=== PATIENT | male | born 1945 | race Hispanic/Latino ===

== ENCOUNTER 2018-11-28 13:48 | Emergency (ER) | payer OTHER ==
[2018-11-28] MEDS ORDERED: KETOROLAC TROMETHAMINE 30MG/ML ONE (14:47)
[2018-11-28] MEDS ORDERED: LIDOCAINE 5% TOPICAL PATCH TP ONE (14:47)
[2018-11-28] MEDS ORDERED: TETANUS/DIPHTHERIA TOXOID [ADULT] 0.5 ML VIAL IM ONE (14:47)
[2018-11-28] MEDS ORDERED: ACETAMINOPHEN EXTRA STRENGTH 500 MG TABLET ONE (14:47)
== END 2018-11-28 16:15 | disposition home or self-care (01) ==
LOC: EDH 13:48
DX: S91.112A Laceration without foreign body of left great toe without damage to nail, initial encounter (principal); S39.012A Strain of muscle, fascia and tendon of lower back, initial encounter; E11.9 Type 2 diabetes mellitus without complications; Z90.49 Acquired absence of other specified parts of digestive tract; Z87.891 Personal history of nicotine dependence; W01.0XXA Fall on same level from slipping, tripping and stumbling without subsequent striking against object, initial encounter; Y93.01 Activity, walking, marching and hiking; Y92.89 Other specified places as the place of occurrence of the external cause; Y99.8 Other external cause status
CPT/HCPCS: 73630; 90714; 99285; J1885

== ENCOUNTER 2019-04-28 08:30 | Day surgery (SDC) | payer OTHER ==
[2019-04-26 14:35] LABS: BASOPHILS % (AUTO) 1.1 % (0.0-5.0); EOSINOPHILS % (AUTO) 2.7 % (0.0-8.0); HEMATOCRIT 36.7 % (42-54); LYMPHOCYTES % (AUTO) 35.9 % (21.0-51.0); MEAN CORPUSCULAR HEMOGLOBIN 30.3 pg (27.0-33.0); MEAN CORPUSCULAR HGB CONC 34.9 g/dL (32.0-36.0); MEAN CORPUSCULAR VOLUME 86.9 fL (79-99); NEUTROPHILS % (AUTO) 50.3 % (40.0-77.0); PLATELET COUNT (AUTO) 174 K/uL (130-400); RED BLOOD CELL COUNT(AUTO) 4.23 MIL/uL (4.50-6.20)
[2019-04-26 14:44] LABS: POTASSIUM 4.5 mmol/L (3.5-5.1)
[2019-04-26 15:04] VITALS: BP 156/73
[2019-04-28] VITALS (19 sets, daily range): BP systolic 98–145; BP diastolic 55–82
[~2019-04-28] VITALS: Ht 175.3 cm; Wt 117.0 kg
[2019-04-28] MEDS: CEFTRIAXONE SODIUM 1 GM IVP ONE ×2 (08:00→09:40)
[~2019-04-28 08:30] MED LIST: CEPH500T PO; GLIM4TAB5 PO; LOSA25TA41 PO; ROSU10TA28 PO; SITA50TA PO; TAMS-1 PO
[2019-04-28] MEDS ORDERED: CEFTRIAXONE SODIUM 1 GM ONE (09:33)
[2019-04-28] MEDS ORDERED: SODIUM CHLORIDE 0.9% 1000ML 1,000 ML IV ONE (09:34)
[2019-04-28] MEDS ORDERED: DEXAMETHASONE SOD PHOSPHATE 10MG/ML 1ML VIAL ONE (09:36)
[2019-04-28] MEDS ORDERED: LIDOCAINE PF 2% 5ML ABBOJECT ONE (09:36)
[2019-04-28] MEDS ORDERED: PROPOFOL 10 MG/ML 20ML VIAL IV ONE (09:37)
[2019-04-28] MEDS ORDERED: FENTANYL CITRATE PF 50 MCG/1 ML 2ML VIAL ONE (09:37)
[2019-04-28] MEDS ORDERED: MIDAZOLAM HCL 1 MG/ML 2ML VIAL ONE (09:37)
[2019-04-28] MEDS ORDERED: ONDANSETRON HCL 4 MG/2 ML VIAL ONE (09:37)
[2019-04-28] MEDS ORDERED: EPHEDRINE SULFATE 50 MG/ML AMPULE ONE (10:01)
[2019-04-28] MEDS ORDERED: OPIUM/BELLADONNA ALKALOIDS 1 EACH SUPP.RECT RC ONE (10:51)
--- NOTE | 2019-04-28 11:43 | NUR ---
POST-PROCEDURE RECEIVED FROM RR S/P GREEN LIGHT LASER VIA STRETCHER. AWAKE C/O BILATERAL CHEST "SORENESS". CONNECTED TO CONTINUOUS CARDIOPULMONARY MONITORING. SIDE RAILS UP X2, BED IN LOWEST POSITION, AND CALL LIGHT W/IN REACH. Addendum: 04/28/19 at 1640 by VIV SOLIZ RN RN 16F F/C TO BSD DRAINING PINK URINE.
[2019-04-28] MEDS ORDERED: PHENAZOPYRIDINE HCL 200 MG TABLET ONE (11:54)
--- NOTE | 2019-04-28 12:06 | NUR ---
MD NOTIFICATION DR. NEWBY NOTIFIED THAT PT C/O OF CHEST "SORENESS". DR. NEWBY IN TO SEE PATIENT. ORDER RECEIVED FOR EKG. PT DENIES CHEST PRESSURE, PAIN TO THE ARM, OR DIFFICULTY BREATHING.
--- NOTE | 2019-04-28 12:15 | NUR ---
ORDER EKG COMPLETED ORDERED.
--- NOTE | 2019-04-28 12:19 | NUR ---
EKG RESULTS DR. NEWBY CALLED WITH EKG RESULTS. PER DR. NEWBY PT CAN BE DISCHARGED WITH INSTRUCTIONS TO RETURN TO ER FOR CHEST PAIN, PAIN TO THE ARM, OR DIFFICULTY BREATHING.
--- NOTE | 2019-04-28 12:30 | NUR ---
EDUCATION PT AND EDUCATED/DEMONSTRATED HOW TO SWITCH FROM RAMIREZ BAG TO LEG BAG. LEG STRAP APPLIED TO F/C. EDUCATED ON IMPORTANCE OF GOOD HANDWASHING WHEN SWITCHING BAG AND KEEPING RAMIREZ BELOW BLADDER. BOTH VERBALIZED UNDERSTANDING.
--- NOTE | 2019-04-28 12:30 | NUR ---
ACTIVITY AMBULATED TO RR WITH STANDBY ASSIST OF 1. GAIT STEADY.
--- NOTE | 2019-04-28 12:43 | NUR ---
DISCHARGE INSTRUCTIONS DAY PT DISCHARGE INSTRUCTION SHEET, MED REC, AND PT SUMMARY REVIEWED WITH PT AND . BOTH VERBALIZED UNDERSTANDING. OPPORTUNITY GIVEN TO ASK QUESTIONS. QUESTIONS ADDRESSED.
--- NOTE | 2019-04-28 13:16 | NUR ---
DISCHARGE DISCHARGED VIA W/C. AWAKE IN NO ACUTE DISTRESS.
== END 2019-04-28 13:16 | disposition home or self-care (01) ==
LOC: DAH 08:30
PROVIDERS: ATTEND Urology
DX: N40.1 Benign prostatic hyperplasia with lower urinary tract symptoms (principal); R35.1 Nocturia; I10 Essential (primary) hypertension; E11.9 Type 2 diabetes mellitus without complications; E78.00 Pure hypercholesterolemia, unspecified; F17.210 Nicotine dependence, cigarettes, uncomplicated; Z79.899 Other long term (current) drug therapy; Z79.84 Long term (current) use of oral hypoglycemic drugs; Z98.890 Other specified postprocedural states
CPT/HCPCS: 36415; 52648; 80048; 82948 ×2; 85025; 88307; 93005 ×2; A4215; A4221; A4222; A4223; A4340; A4354; A4358; A4510; A4600; A4663; J0696; J1100; J2001; J2250; J2405; J2704; J3010; J3490; J7030 ×2

== ENCOUNTER → 2019-08-18 | Outpatient (CLI) | payer OTHER ==
[~2019-08-18] MED LIST changes: +GLIM4TAB36 PO; -GLIM4TAB5 PO
== END | disposition home or self-care (01) ==
LOC: OIH 13:43
PROVIDERS: ATTEND Internal Medicine Cardiovascular Disease
DX: Z13.6 Encounter for screening for cardiovascular disorders (principal)
CPT/HCPCS: 75571

== ENCOUNTER → 2019-09-07 | Outpatient (CLI) | payer OTHER | END | disposition home or self-care (01) | LOC: SHCH 08:20 | PROVIDERS: ATTEND Internal Medicine Cardiovascular Disease | DX: I11.9 Hypertensive heart disease without heart failure (principal); I35.8 Other nonrheumatic aortic valve disorders | CPT/HCPCS: 93306; 93356 ==

== ENCOUNTER → 2019-09-12 | Outpatient (CLI) | payer OTHER | END | disposition home or self-care (01) | LOC: SHCH 08:51 | PROVIDERS: ATTEND Internal Medicine Cardiovascular Disease | DX: I73.9 Peripheral vascular disease, unspecified (principal); I87.2 Venous insufficiency (chronic) (peripheral) | CPT/HCPCS: 93925; 93970 ==

== ENCOUNTER 2021-05-23 05:29 | Inpatient (IN) | payer OTHER ==
[2021-05-23] VITALS (18 sets, daily range): BP systolic 109–165; BP diastolic 53–103
[~2021-05-23] VITALS: Ht 175.3 cm; Wt 135.9 kg
[~2021-05-23 05:29] MED LIST changes: +HYDR12.54 PO; +MIRA50TA PO; +OXYB-66 PO; +SIMV40TA59 PO; +SITA100T12 PO; -SITA50TA PO
[2021-05-23] MEDS ORDERED: ASPIRIN 81MG CHEW TAB ONE (05:34)
[2021-05-23] MEDS ORDERED: NITROGLYCERIN 0.4 MG SL TAB SL ONE (05:37)
[2021-05-23 05:48] LABS: BASOPHILS % (AUTO) 0.6 % (0.0-5.0); EOSINOPHILS % (AUTO) 3.6 % (0.0-8.0); HEMATOCRIT 37.5 % (42-54); LYMPHOCYTES % (AUTO) 20.6 % (21.0-51.0); MEAN CORPUSCULAR HEMOGLOBIN 28.4 pg (27.0-33.0); MEAN CORPUSCULAR HGB CONC 33.1 g/dL (32.0-36.0); MONOCYTES % (AUTO) 6.5 % (3.0-13.0); NEUTROPHILS % (AUTO) 68.1 % (40.0-77.0); PLATELET COUNT (AUTO) 185 K/uL (130-400); RED BLOOD CELL COUNT(AUTO) 4.36 MIL/uL (4.50-6.20); RED CELL DISTRIBUTION WIDTH 13.8 % (11.0-15.5); WHITE BLOOD COUNT (AUTO) 8.9 K/uL (4.8-10.8)
[2021-05-23 05:59] LABS: CREATININE 1.1 mg/dL (0.5-1.5)
[2021-05-23] MEDS ORDERED: HEPARIN 25,000 UNITS/250ML D5W 250 ML IV PRN (06:00)
[2021-05-23] MEDS ORDERED: MORPHINE 2 MG SYG IVP ONE ×2 (06:00)
[2021-05-23] MEDS ORDERED: HEPARIN 5,000 UNIT VIAL IV ONE (06:00)
[2021-05-23 06:01] LABS: INR 1.02 (0.85-1.15); PROTHROMBIN TIME 11.1 SEC (9.6-11.6)
[2021-05-23 06:02] LABS: PARTIAL THROMBOPLASTIN TIME 25.1 SEC (26.3-35.5)
[2021-05-23] MEDS ORDERED: HEPARIN 10,000 UNIT/10ML (1,000 UNIT/ML) VIAL ONE (06:06)
[2021-05-23] MEDS ORDERED: BIVALIRUDIN 250 MG/VIAL IV ONE ×2 (06:06→06:59)
[2021-05-23] MEDS ORDERED: IOHEXOL 350 MG/ML 100ML INFUS..BTL IV ONE (06:06)
[2021-05-23] MEDS ORDERED: NITROGLYCERIN 2 MG VIAL IV ONE (06:06)
[2021-05-23] MEDS ORDERED: LIDOCAINE HCL 400MG/20ML VIAL ONE (06:07)
[2021-05-23 06:08] LABS: ALBUMIN 3.6 g/dL (3.5-5.0); BILIRUBIN,TOTAL 0.1 mg/dL (0.2-1.0)
[2021-05-23] MEDS ORDERED: HEPARIN 5,000 UNIT VIAL ONE (06:08)
[2021-05-23] MEDS ORDERED: MORPHINE 2 MG SYG ONE (06:08)
[2021-05-23] MEDS ORDERED: MIDAZOLAM HCL 1 MG/ML 2ML VIAL ONE (06:32)
[2021-05-23] MEDS ORDERED: FENTANYL CITRATE PF 50 MCG/1 ML 2ML VIAL ONE (06:32)
[2021-05-23] MEDS ORDERED: VERAPAMIL HCL 2.5 MG/ML VIAL ONE (07:03)
[2021-05-23] MEDS ORDERED: IOHEXOL-350 50ML VIAL IV ONE (07:10)
[2021-05-23] MEDS ORDERED: CLOPIDOGREL 300MG TAB ONE (07:28)
[2021-05-23] MEDS ORDERED: DEXTROSE 50%-WATER 50 ML DISP.SYRIN IV PRN (08:00)
[2021-05-23] MEDS ORDERED: GLUCAGON 1MG KIT 1 MG ML IM PRN (08:00)
[2021-05-23] MEDS ORDERED: 0.9%NACL 1000ML 1,000 ML IV SCH (08:00)
[2021-05-23] MEDS ORDERED: NITROGLYCERIN 0.4 MG SL TAB SL PRN (08:00)
[2021-05-23] MEDS: ASPIRIN 81MG CHEW TAB PO SCH (08:25)
[2021-05-23] MEDS: METOPROLOL TARTRATE 25 MG TAB PO SCH ×2 (08:26→20:59)
[2021-05-23] MEDS: LOSARTAN 50 MG TABLET PO SCH (08:26)
[2021-05-23] MEDS ORDERED: CLOPIDOGREL 75MG TAB PO SCH (09:00)
[2021-05-23 10:38] LABS: HEMOGLOBIN A1C 9.1 % (4.0-6.0)
[2021-05-23] MEDS: INSULIN HUMULIN R 100 UNIT/ML 3ML SQ SCH ×3 (11:30→19:51)
[2021-05-24] VITALS (14 sets, daily range): BP systolic 91–123; BP diastolic 41–75
[2021-05-24] MEDS: HEPARIN 5,000 UNIT VIAL SQ SCH ×4 (00:19→22:30)
[2021-05-24 03:48] LABS: APPEARANCE,URINE Clear (CLEAR); BILIRUBIN,URINE Negative (NEGATIVE); COLOR,URINE Yellow (YELLOW); GLUCOSE, URINE (UA) 250 mg/dL (NEGATIVE); KETONES,URINE Trace mg/dL (NEGATIVE); LEUKOCYTE ESTERASE ,URINE Negative (NEGATIVE); NITRATE,URINE Negative (NEGATIVE); OCCULT BLOOD,URINE Negative (NEGATIVE); PROTEIN,URINE Trace mg/dL (NEGATIVE)
[2021-05-24 04:07] LABS: BACTERIA,URINE None Seen /HPF (None Seen); RBC,URINE 0-1 /HPF (0-1); WBC,URINE 0-1 /HPF (0-1)
[2021-05-24 04:08] LABS: MUCUS,URINE Few LPF (None Seen); SQUAMOUS EPITHELIAL CELL,UR Rare /HPF (0-2)
[2021-05-24 04:36] LABS: HEMATOCRIT 35.4 % (42-54); MEAN CORPUSCULAR HEMOGLOBIN 28.3 pg (27.0-33.0); MEAN CORPUSCULAR HGB CONC 33.9 g/dL (32.0-36.0); MEAN CORPUSCULAR VOLUME 83.5 fL (79-99); RED BLOOD CELL COUNT(AUTO) 4.24 MIL/uL (4.50-6.20); RED CELL DISTRIBUTION WIDTH 13.9 % (11.0-15.5); WHITE BLOOD COUNT (AUTO) 9.3 K/uL (4.8-10.8)
[2021-05-24 04:55] LABS: ALBUMIN 3.5 g/dL (3.5-5.0); BILIRUBIN,TOTAL 0.5 mg/dL (0.2-1.0); POTASSIUM 3.6 mmol/L (3.5-5.1); TOTAL PROTEIN, SERUM 7.6 g/dL (6.0-8.3)
[2021-05-24] MEDS: INSULIN HUMULIN R 100 UNIT/ML 3ML SQ SCH ×5 (06:20→21:19)
[2021-05-24] MEDS: LOSARTAN 50 MG TABLET PO SCH (08:24)
[2021-05-24] MEDS: METOPROLOL TARTRATE 25 MG TAB PO SCH ×2 (08:31→20:25)
[2021-05-24] MEDS: ASPIRIN 81MG CHEW TAB PO SCH (08:31)
[2021-05-24] MEDS: TAMSULOSIN HCL 0.4 MG CAP.ER.24H PO SCH (08:31)
[2021-05-24] MEDS: OXYBUTYNIN 5 MG TAB.SR.24H PO SCH (08:40)
[2021-05-24] MEDS: IPRATROPIUM/ALBUTEROL SULFATE 3 ML SOLUTION IH SCH ×2 (12:00→18:00)
[2021-05-24] MEDS: SIMVASTATIN 20 MG TABLET PO SCH (20:25)
[2021-05-25 03:50] VITALS: BP 112/62
[2021-05-25] MEDS: IPRATROPIUM/ALBUTEROL SULFATE 3 ML SOLUTION IH SCH ×4 (06:00→18:00)
[2021-05-25 08:00] VITALS: BP 151/77
[2021-05-25] MEDS: TAMSULOSIN HCL 0.4 MG CAP.ER.24H PO SCH (08:29)
[2021-05-25] MEDS: METOPROLOL TARTRATE 25 MG TAB PO SCH ×2 (08:29→20:06)
[2021-05-25] MEDS: OXYBUTYNIN 5 MG TAB.SR.24H PO SCH (08:29)
[2021-05-25] MEDS: LOSARTAN 50 MG TABLET PO SCH (08:30)
[2021-05-25] MEDS: ASPIRIN 81MG CHEW TAB PO SCH (08:30)
[2021-05-25] MEDS: INSULIN HUMULIN R 100 UNIT/ML 3ML SQ SCH ×4 (08:34→20:07)
[2021-05-25] MEDS: FUROSEMIDE 20 MG TABLET PO SCH ×2 (08:45→17:35)
[2021-05-25] MEDS: HEPARIN 5,000 UNIT VIAL SQ SCH ×3 (08:45→23:05)
[2021-05-25 12:00] VITALS: BP 132/70
[2021-05-25] MEDS ORDERED: ACETAMINOPHEN 500 MG TABLET PO ONE (14:00)
[2021-05-25 16:00] VITALS: BP 130/65
[2021-05-25 19:00] VITALS: BP 138/90
[2021-05-25] MEDS: SIMVASTATIN 20 MG TABLET PO SCH (20:06)
[2021-05-25] MEDS: MEMANTINE HCL 5 MG TABLET PO SCH (20:06)
[2021-05-26] VITALS (7 sets, daily range): BP systolic 95–149; BP diastolic 57–69
[2021-05-26 05:05] LABS: CREATININE 1.1 mg/dL (0.5-1.5); POTASSIUM 3.2 mmol/L (3.5-5.1)
[2021-05-26] MEDS ORDERED: KCL 20 MEQ ERTAB PO ONE (05:34)
[2021-05-26] MEDS: HEPARIN 5,000 UNIT VIAL SQ SCH ×3 (05:38→20:30)
[2021-05-26] MEDS: INSULIN HUMULIN R 100 UNIT/ML 3ML SQ SCH ×4 (05:38→20:31)
[2021-05-26] MEDS: KCL 20 MEQ ERTAB PO PRN ×3 (05:51→17:00)
[2021-05-26] MEDS ORDERED: POTASSIUM CHLORIDE 20MEQ/100ML 100 ML IV PRN (06:00)
[2021-05-26] MEDS: IPRATROPIUM/ALBUTEROL SULFATE 3 ML SOLUTION IH SCH ×4 (06:00→18:56)
[2021-05-26] MEDS ORDERED: LIDOCAINE HCL-MPF 1% 2ML VIAL IV PRN (06:00)
[2021-05-26] MEDS ORDERED: POTASSIUM CHLORIDE 10% ELIXIR 20 MEQ/15 ML UDCUP PO PRN (06:00)
[2021-05-26 06:36] LABS: ABG BASE EXCESS 3.5 mmol/L (-2.0-3.0); ABG HCO3 27.4 mmol/L (21.0-28.0); ABG OXYGEN SATURATION 94.9 % (95.0-99.0); ABG PCO2 39 mmHg (35-48)
[2021-05-26] MEDS: FUROSEMIDE 20 MG TABLET PO SCH ×2 (09:17→16:58)
[2021-05-26] MEDS: METOPROLOL TARTRATE 25 MG TAB PO SCH ×2 (09:17→20:31)
[2021-05-26] MEDS: ASPIRIN 81MG CHEW TAB PO SCH (09:17)
[2021-05-26] MEDS: OXYBUTYNIN 5 MG TAB.SR.24H PO SCH (09:17)
[2021-05-26] MEDS: TAMSULOSIN HCL 0.4 MG CAP.ER.24H PO SCH (09:17)
[2021-05-26] MEDS: LOSARTAN 50 MG TABLET PO SCH (09:17)
[2021-05-26] MEDS: MEMANTINE HCL 5 MG TABLET PO SCH (20:31)
[2021-05-26] MEDS: SIMVASTATIN 20 MG TABLET PO SCH (20:31)
[2021-05-27] MEDS: IPRATROPIUM/ALBUTEROL SULFATE 3 ML SOLUTION IH SCH ×4 (00:33→18:36)
[2021-05-27 04:05] LABS: BASOPHILS % (AUTO) 0.6 % (0.0-5.0); EOSINOPHILS % (AUTO) 2.9 % (0.0-8.0); HEMATOCRIT 30.1 % (42-54); LYMPHOCYTES % (AUTO) 29.9 % (21.0-51.0); MEAN CORPUSCULAR HEMOGLOBIN 28.2 pg (27.0-33.0); MEAN CORPUSCULAR HGB CONC 32.9 g/dL (32.0-36.0); MEAN CORPUSCULAR VOLUME 85.8 fL (79-99); MONOCYTES % (AUTO) 10.8 % (3.0-13.0); NEUTROPHILS % (AUTO) 55.2 % (40.0-77.0); PLATELET COUNT (AUTO) 146 K/uL (130-400); RED BLOOD CELL COUNT(AUTO) 3.51 MIL/uL (4.50-6.20); RED CELL DISTRIBUTION WIDTH 13.9 % (11.0-15.5); WHITE BLOOD COUNT (AUTO) 7.8 K/uL (4.8-10.8)
[2021-05-27 04:14] VITALS: BP 108/65
[2021-05-27 04:15] LABS: BILIRUBIN,TOTAL 0.3 mg/dL (0.2-1.0); CREATININE 1.2 mg/dL (0.5-1.5); MAGNESIUM 1.8 mg/dL (1.80-2.40); POTASSIUM 3.8 mmol/L (3.5-5.1); TOTAL PROTEIN, SERUM 6.9 g/dL (6.0-8.3)
[2021-05-27] MEDS ORDERED: MAGNESIUM 2GM PREMIX 50ML 50 ML IV PRN (04:30)
[2021-05-27] MEDS: INSULIN HUMULIN R 100 UNIT/ML 3ML SQ SCH ×4 (04:50→22:07)
[2021-05-27] MEDS: HEPARIN 5,000 UNIT VIAL SQ SCH ×3 (05:44→22:07)
[2021-05-27 07:50] VITALS: BP 123/74
[2021-05-27] MEDS: OXYBUTYNIN 5 MG TAB.SR.24H PO SCH (09:21)
[2021-05-27] MEDS: TAMSULOSIN HCL 0.4 MG CAP.ER.24H PO SCH (09:21)
[2021-05-27] MEDS: FUROSEMIDE 20 MG TABLET PO SCH ×2 (09:21→16:31)
[2021-05-27] MEDS: METOPROLOL TARTRATE 25 MG TAB PO SCH ×2 (09:21→22:04)
[2021-05-27] MEDS: LOSARTAN 50 MG TABLET PO SCH (09:21)
[2021-05-27] MEDS: ASPIRIN 81MG CHEW TAB PO SCH (09:21)
[2021-05-27 10:42] VITALS: BP 129/67
[2021-05-27 15:50] VITALS: BP 129/59
[2021-05-27 19:00] VITALS: BP 134/62
[2021-05-27] MEDS: SIMVASTATIN 20 MG TABLET PO SCH (22:04)
[2021-05-27] MEDS: MEMANTINE HCL 5 MG TABLET PO SCH (22:04)
[2021-05-28] VITALS: BP 120/65
[2021-05-28] MEDS: IPRATROPIUM/ALBUTEROL SULFATE 3 ML SOLUTION IH SCH ×4 (00:30→18:36)
[2021-05-28 04:00] VITALS: BP 96/51
[2021-05-28] MEDS: INSULIN HUMULIN R 100 UNIT/ML 3ML SQ SCH ×4 (06:36→21:25)
[2021-05-28] MEDS: HEPARIN 5,000 UNIT VIAL SQ SCH ×3 (06:46→22:00)
[2021-05-28 07:47] VITALS: BP 108/66
[2021-05-28] MEDS: ASPIRIN 81MG CHEW TAB PO SCH (09:27)
[2021-05-28] MEDS: TAMSULOSIN HCL 0.4 MG CAP.ER.24H PO SCH (09:27)
[2021-05-28] MEDS: FUROSEMIDE 20 MG TABLET PO SCH ×2 (09:27→17:36)
[2021-05-28] MEDS: LOSARTAN 50 MG TABLET PO SCH (09:28)
[2021-05-28] MEDS: OXYBUTYNIN 5 MG TAB.SR.24H PO SCH (09:28)
[2021-05-28] MEDS: CLOPIDOGREL 75MG TAB PO SCH (09:28)
[2021-05-28] MEDS: METOPROLOL TARTRATE 25 MG TAB PO SCH ×2 (09:28→21:08)
[2021-05-28 10:59] VITALS: BP 124/67
[2021-05-28 15:42] VITALS: BP 118/62
[2021-05-28 19:00] VITALS: BP 104/54
[2021-05-28] MEDS: MEMANTINE HCL 5 MG TABLET PO SCH (21:08)
[2021-05-28] MEDS: SIMVASTATIN 20 MG TABLET PO SCH (21:08)
[2021-05-29] VITALS: BP 121/59
[2021-05-29] MEDS: IPRATROPIUM/ALBUTEROL SULFATE 3 ML SOLUTION IH SCH ×3 (00:39→11:27)
[2021-05-29 04:00] VITALS: BP 113/62
[2021-05-29] MEDS: HEPARIN 5,000 UNIT VIAL SQ SCH ×2 (05:35→14:24)
[2021-05-29] MEDS: INSULIN HUMULIN R 100 UNIT/ML 3ML SQ SCH ×3 (06:20→16:03)
[2021-05-29 07:50] VITALS: BP 96/51
[2021-05-29] MEDS: LOSARTAN 50 MG TABLET PO SCH (09:20)
[2021-05-29] MEDS: OXYBUTYNIN 5 MG TAB.SR.24H PO SCH (09:20)
[2021-05-29] MEDS: FUROSEMIDE 20 MG TABLET PO SCH ×2 (09:20→16:43)
[2021-05-29] MEDS: ASPIRIN 81MG CHEW TAB PO SCH (09:20)
[2021-05-29] MEDS: CLOPIDOGREL 75MG TAB PO SCH (09:20)
[2021-05-29] MEDS: METOPROLOL TARTRATE 25 MG TAB PO SCH (09:20)
[2021-05-29] MEDS: TAMSULOSIN HCL 0.4 MG CAP.ER.24H PO SCH (09:20)
[2021-05-29 11:13] VITALS: BP 106/65
[2021-05-29 15:37] VITALS: BP 119/64
[2021-05-29] MEDS ORDERED: METO25 PO (16:36)
[2021-05-29] MEDS ORDERED: POTA-10 PO (16:36)
[2021-05-29] MEDS ORDERED: MEMA5TAB PO (16:36)
[2021-05-29] MEDS ORDERED: ASPI-1005 PO (16:36)
[2021-05-29] MEDS ORDERED: CLOP75TA14 PO (16:36)
[2021-05-29] MEDS ORDERED: FURO20TA6 PO (16:36)
[2021-05-29] MEDS ORDERED: LOSA50TA2 PO (16:36)
== END 2021-05-29 18:00 | disposition home or self-care (01) | DRG 248 ==
LOC: EDH 05:29 → 2CH 05:30 → UNDOADMIN 05:30 → 2CH 07:51 → 4BH 05-24 21:13
PROVIDERS: ADMIT Internal Medicine Pulmonary Disease; ATTEND Internal Medicine Pulmonary Disease
PROC: 02703DZ Dilation of Coronary Artery, One Artery with Intraluminal Device, Percutaneous Approach (ICD-10-PCS; principal; 2021-05-23)
PROC: 4A023N7 Measurement of Cardiac Sampling and Pressure, Left Heart, Percutaneous Approach (ICD-10-PCS; 2021-05-23)
PROC: B2111ZZ Fluoroscopy of Multiple Coronary Arteries using Low Osmolar Contrast (ICD-10-PCS; 2021-05-23)
PROC: B2151ZZ Fluoroscopy of Left Heart using Low Osmolar Contrast (ICD-10-PCS; 2021-05-23)
DX: I21.19 ST elevation (STEMI) myocardial infarction involving other coronary artery of inferior wall (principal); I50.41 Acute combined systolic (congestive) and diastolic (congestive) heart failure; J98.11 Atelectasis; E46 Unspecified protein-calorie malnutrition; Z68.41 Body mass index [BMI] 40.0-44.9, adult; Z20.822 Contact with and (suspected) exposure to COVID-19; E78.5 Hyperlipidemia, unspecified; R29.6 Repeated falls; N40.0 Benign prostatic hyperplasia without lower urinary tract symptoms; E11.40 Type 2 diabetes mellitus with diabetic neuropathy, unspecified; F17.210 Nicotine dependence, cigarettes, uncomplicated; F03.90 Unspecified dementia, unspecified severity, without behavioral disturbance, psychotic disturbance, mood disturbance, and anxiety; F41.1 Generalized anxiety disorder; F32.A Depression, unspecified; I11.0 Hypertensive heart disease with heart failure; E78.00 Pure hypercholesterolemia, unspecified; I25.10 Atherosclerotic heart disease of native coronary artery without angina pectoris; Z90.49 Acquired absence of other specified parts of digestive tract; Z79.02 Long term (current) use of antithrombotics/antiplatelets; Z79.82 Long term (current) use of aspirin; Z79.84 Long term (current) use of oral hypoglycemic drugs; Z79.899 Other long term (current) drug therapy; Z86.73 Personal history of transient ischemic attack (TIA), and cerebral infarction without residual deficits
CPT/HCPCS: 36415; 36600; 71045; 80048; 80053; 80061; 81001; 82803; 82948; 83036; 83735; 83880; 84484; 85025; 85027; 85610; 85730; 87635; 92610; 92941; 93005; 93306; 93356; 93458; 93880; 93970; 94010; 94640; 94664; 97039; 99156; 99157; C1760; C1769; C1887; C1894; C9600; C9803; G0378; J0583; J1644; J1815; J2250; J3010; J3475; J3490; Q9967

== ENCOUNTER 2021-10-29 17:34 | Inpatient (IN) | payer OTHER ==
[~2021-10-29] VITALS: Ht 175.3 cm; Wt 99.4 kg
[~2021-10-29 17:34] MED LIST changes: +AEC81 PO; -CEPH500T PO; +CLOP75TA32 PO; +CYAN-35 PO; +FERR-72 PO; +FINA5TAB41 PO; +FURO20TA4 PO; -HYDR12.54 PO; -LOSA25TA41 PO; +LOSA50TA64 PO; +MEMA5TAB42 PO; +METO25TA6 PO; -MIRA50TA PO; -OXYB-66 PO; +PANT40TA54 PO; +POTA-10 PO; -ROSU10TA28 PO; +VITAMIN D3 PO
[2021-10-29 18:26] LABS: BASOPHILS % (AUTO) 1.1 % (0.0-5.0); EOSINOPHILS % (AUTO) 9.6 % (0.0-8.0); LYMPHOCYTES % (AUTO) 26.3 % (21.0-51.0); MEAN CORPUSCULAR HEMOGLOBIN 27.1 pg (27.0-33.0); MEAN CORPUSCULAR HGB CONC 31.8 g/dL (32.0-36.0); MEAN CORPUSCULAR VOLUME 85.4 fL (79-99); MONOCYTES % (AUTO) 7.1 % (3.0-13.0); NEUTROPHILS % (AUTO) 55.3 % (40.0-77.0); PLATELET COUNT (AUTO) 363 K/uL (130-400); RED BLOOD CELL COUNT(AUTO) 3.28 MIL/uL (4.50-6.20); RED CELL DISTRIBUTION WIDTH 15.5 % (11.0-15.5); WHITE BLOOD COUNT (AUTO) 8.4 K/uL (4.8-10.8)
[2021-10-29] MEDS ORDERED: FURO20TA4 PO (18:27)
[2021-10-29] MEDS ORDERED: SITA100T12 PO (18:27)
[2021-10-29] MEDS ORDERED: OXYB5TAB15 PO (18:27)
[2021-10-29] MEDS ORDERED: LACT10PA5 PO (18:27)
[2021-10-29] MEDS ORDERED: ATOR40TA71 PO (18:27)
[2021-10-29] MEDS ORDERED: LISI2.5T13 PO (18:27)
[2021-10-29 18:51] LABS: B-TYPE NATRIURETIC PEPTIDE 164 pg/mL (0-100)
[2021-10-29] MEDS ORDERED: ACETAMINOPHEN 650 MG SUPPOSITORY RC PRN (19:00)
[2021-10-29] MEDS ORDERED: ACETAMINOPHEN 325 MG TAB PO PRN (19:00)
[2021-10-29] MEDS ORDERED: MORPHINE 2 MG SYG IVP PRN (19:00)
[2021-10-29] MEDS ORDERED: ALBUTEROL 0.083% 2.5 MG/3 ML INH IH PRN (19:00)
[2021-10-29] MEDS ORDERED: LACTULOSE 20 GM/30 ML UDCUP PO PRN (19:00)
[2021-10-29 19:10] LABS: CREATININE 1.1 mg/dL (0.5-1.5); POTASSIUM 4.1 mmol/L (3.5-5.1)
[2021-10-29 19:28] LABS: ALBUMIN 2.8 g/dL (3.5-5.0); BILIRUBIN,TOTAL 0.4 mg/dL (0.2-1.0); TOTAL PROTEIN, SERUM 6.8 g/dL (6.0-8.3)
[2021-10-29] MEDS ORDERED: SIMVASTATIN 20 MG TABLET PO SCH (21:00)
[2021-10-29] MEDS: METOPROLOL TARTRATE 25 MG TAB PO SCH (21:00)
[2021-10-29] MEDS: ENOXAPARIN SODIUM 40 MG/0.4 ML SYRINGE SQ SCH (21:43)
[2021-10-29] MEDS: FUROSEMIDE 20 MG TABLET PO SCH (22:25)
[2021-10-29] MEDS: OXYBUTYNIN CHLORIDE 5 MG TABLET PO SCH (22:25)
[2021-10-30] MEDS ORDERED: DEXTROSE 50%-WATER 50 ML DISP.SYRIN IV PRN (01:30)
[2021-10-30] MEDS: LEVOFLOXACIN 500 MG/D5W 100 ML 100 ML IV SCH (01:30)
[2021-10-30] MEDS ORDERED: GLUCAGON 1MG KIT 1 MG ML IM PRN (01:30)
[2021-10-30] MEDS: CLINDAMYCIN IVPB 300MG/50ML 50 ML IV SCH ×3 (03:15→16:57)
[2021-10-30 07:03] LABS: MAGNESIUM 1.9 mg/dL (1.80-2.40); PHOSPHORUS 3.9 mg/dL (2.5-4.9)
[2021-10-30] MEDS: INSULIN HUMULIN R 100 UNIT/ML 3ML SQ SCH ×4 (07:24→20:24)
[2021-10-30] MEDS: GLIMEPIRIDE 2 MG TABLET PO SCH (08:03)
[2021-10-30] MEDS: TAMSULOSIN HCL 0.4 MG CAP.ER.24H PO SCH (08:34)
[2021-10-30] MEDS: FERROUS SULFATE 325 MG TABLET.DR PO SCH (08:34)
[2021-10-30] MEDS: LOSARTAN 50 MG TABLET PO SCH (08:34)
[2021-10-30] MEDS: ASPIRIN 81 MG EC TAB PO SCH (08:34)
[2021-10-30] MEDS: FUROSEMIDE 20 MG TABLET PO SCH ×2 (08:34→20:19)
[2021-10-30] MEDS: METOPROLOL TARTRATE 25 MG TAB PO SCH ×2 (08:35→20:18)
[2021-10-30] MEDS: MEMANTINE HCL 5 MG TABLET PO SCH (08:35)
[2021-10-30] MEDS: CLOPIDOGREL 75MG TAB PO SCH (08:37)
[2021-10-30] MEDS: FINASTERIDE 5 MG TABLET PO SCH (08:37)
[2021-10-30] MEDS: ENOXAPARIN SODIUM 40 MG/0.4 ML SYRINGE SQ SCH (08:37)
[2021-10-30] MEDS: OXYBUTYNIN CHLORIDE 5 MG TABLET PO SCH ×2 (08:37→20:18)
[2021-10-30] MEDS: PANTOPRAZOLE 40 MG TAB DR PO SCH (08:37)
[2021-10-30] MEDS: CYANOCOBALAMIN (VITAMIN B-12) 1,000 MCG TABLET PO SCH (08:37)
[2021-10-30] MEDS: ATORVASTATIN 40 MG TABLET PO SCH (08:42)
[2021-10-30] MEDS: LISINOPRIL 5 MG TABLET PO SCH (08:43)
[2021-10-30 10:00] VITALS: BP 105/61
[2021-10-30] MEDS ORDERED: IOHEXOL 350 MG/ML 100ML INFUS..BTL IV ONE (10:34)
[2021-10-30] MEDS ORDERED: FUROSEMIDE 20 MG TABLET PO SCH (12:00)
[2021-10-30 12:15] VITALS: BP 114/66
[2021-10-30 16:15] VITALS: BP 117/59
[2021-10-30 19:02] VITALS: BP 135/70
[2021-10-30 23:42] VITALS: BP 106/56
[2021-10-31] MEDS: LEVOFLOXACIN 500 MG/D5W 100 ML 100 ML IV SCH (00:56)
[2021-10-31] MEDS: CLINDAMYCIN IVPB 300MG/50ML 50 ML IV SCH ×3 (00:56→17:20)
[2021-10-31 03:34] VITALS: BP 115/56
[2021-10-31 04:13] LABS: BASOPHILS % (AUTO) 1.1 % (0.0-5.0); EOSINOPHILS % (AUTO) 10.4 % (0.0-8.0); HEMATOCRIT 27.1 % (42-54); MEAN CORPUSCULAR HEMOGLOBIN 27.5 pg (27.0-33.0); MEAN CORPUSCULAR HGB CONC 32.8 g/dL (32.0-36.0); MEAN CORPUSCULAR VOLUME 83.6 fL (79-99); MONOCYTES % (AUTO) 9.7 % (3.0-13.0); NEUTROPHILS % (AUTO) 45.2 % (40.0-77.0); PLATELET COUNT (AUTO) 303 K/uL (130-400); RED BLOOD CELL COUNT(AUTO) 3.24 MIL/uL (4.50-6.20); RED CELL DISTRIBUTION WIDTH 15.5 % (11.0-15.5); WHITE BLOOD COUNT (AUTO) 7.1 K/uL (4.8-10.8)
[2021-10-31 04:32] LABS: ALBUMIN 2.5 g/dL (3.5-5.0); BILIRUBIN,TOTAL 0.4 mg/dL (0.2-1.0); CREATININE 1.3 mg/dL (0.5-1.5); POTASSIUM 3.3 mmol/L (3.5-5.1); TOTAL PROTEIN, SERUM 6.4 g/dL (6.0-8.3)
[2021-10-31 07:00] VITALS: BP 144/78
[2021-10-31] MEDS: INSULIN HUMULIN R 100 UNIT/ML 3ML SQ SCH ×4 (07:27→20:19)
[2021-10-31] MEDS: FUROSEMIDE 20 MG TABLET PO SCH ×2 (09:00→20:18)
[2021-10-31] MEDS: OXYBUTYNIN CHLORIDE 5 MG TABLET PO SCH ×2 (10:01→20:17)
[2021-10-31] MEDS: ASPIRIN 81 MG EC TAB PO SCH (10:02)
[2021-10-31] MEDS: TAMSULOSIN HCL 0.4 MG CAP.ER.24H PO SCH (10:02)
[2021-10-31] MEDS: FERROUS SULFATE 325 MG TABLET.DR PO SCH (10:02)
[2021-10-31] MEDS: CYANOCOBALAMIN (VITAMIN B-12) 1,000 MCG TABLET PO SCH (10:02)
[2021-10-31] MEDS: ATORVASTATIN 40 MG TABLET PO SCH (10:02)
[2021-10-31] MEDS: LOSARTAN 50 MG TABLET PO SCH (10:02)
[2021-10-31] MEDS: MEMANTINE HCL 5 MG TABLET PO SCH (10:02)
[2021-10-31] MEDS: METOPROLOL TARTRATE 25 MG TAB PO SCH ×2 (10:02→21:00)
[2021-10-31] MEDS: PANTOPRAZOLE 40 MG TAB DR PO SCH (10:02)
[2021-10-31] MEDS: FINASTERIDE 5 MG TABLET PO SCH (10:02)
[2021-10-31] MEDS: CLOPIDOGREL 75MG TAB PO SCH (10:02)
[2021-10-31] MEDS: GLIMEPIRIDE 2 MG TABLET PO SCH (10:03)
[2021-10-31] MEDS: LISINOPRIL 5 MG TABLET PO SCH (10:04)
[2021-10-31] MEDS: ENOXAPARIN SODIUM 40 MG/0.4 ML SYRINGE SQ SCH (10:04)
[2021-10-31 11:00] VITALS: BP 96/54
[2021-10-31 16:00] VITALS: BP 121/78
[2021-10-31 19:03] VITALS: BP 92/44
[2021-10-31 23:32] VITALS: BP 95/55
[2021-11-01] MEDS: CLINDAMYCIN IVPB 300MG/50ML 50 ML IV SCH ×3 (03:11→17:24)
[2021-11-01] MEDS: LEVOFLOXACIN 500 MG/D5W 100 ML 100 ML IV SCH (03:11)
[2021-11-01 03:20] VITALS: BP 87/54
[2021-11-01 04:00] VITALS: BP 99/59
[2021-11-01] MEDS: INSULIN HUMULIN R 100 UNIT/ML 3ML SQ SCH ×4 (06:54→21:00)
[2021-11-01] MEDS: GLIMEPIRIDE 2 MG TABLET PO SCH (07:30)
[2021-11-01 08:00] VITALS: BP 102/65
[2021-11-01] MEDS: LOSARTAN 50 MG TABLET PO SCH (09:00)
[2021-11-01] MEDS: LISINOPRIL 5 MG TABLET PO SCH (09:00)
[2021-11-01] MEDS: ATORVASTATIN 40 MG TABLET PO SCH (10:45)
[2021-11-01] MEDS: TAMSULOSIN HCL 0.4 MG CAP.ER.24H PO SCH (10:45)
[2021-11-01] MEDS: FERROUS SULFATE 325 MG TABLET.DR PO SCH (10:45)
[2021-11-01] MEDS: PANTOPRAZOLE 40 MG TAB DR PO SCH (10:45)
[2021-11-01] MEDS: CLOPIDOGREL 75MG TAB PO SCH (10:45)
[2021-11-01] MEDS: OXYBUTYNIN CHLORIDE 5 MG TABLET PO SCH ×2 (10:45→21:25)
[2021-11-01] MEDS: MEMANTINE HCL 5 MG TABLET PO SCH (10:45)
[2021-11-01] MEDS: METOPROLOL TARTRATE 25 MG TAB PO SCH ×2 (10:45→21:26)
[2021-11-01] MEDS: ASPIRIN 81 MG EC TAB PO SCH (10:46)
[2021-11-01] MEDS: CYANOCOBALAMIN (VITAMIN B-12) 1,000 MCG TABLET PO SCH (10:46)
[2021-11-01] MEDS: FINASTERIDE 5 MG TABLET PO SCH (10:46)
[2021-11-01] MEDS: FUROSEMIDE 20 MG TABLET PO SCH ×2 (10:47→21:26)
[2021-11-01] MEDS: ENOXAPARIN SODIUM 40 MG/0.4 ML SYRINGE SQ SCH (10:48)
[2021-11-01 11:19] LABS: HEMATOCRIT 29.3 % (42-54); MEAN CORPUSCULAR HEMOGLOBIN 27.3 pg (27.0-33.0); MEAN CORPUSCULAR HGB CONC 32.8 g/dL (32.0-36.0); MEAN CORPUSCULAR VOLUME 83.2 fL (79-99); PLATELET COUNT (AUTO) 296 K/uL (130-400); RED BLOOD CELL COUNT(AUTO) 3.52 MIL/uL (4.50-6.20); RED CELL DISTRIBUTION WIDTH 15.5 % (11.0-15.5); WHITE BLOOD COUNT (AUTO) 7.4 K/uL (4.8-10.8)
[2021-11-01 11:37] LABS: ALBUMIN 2.9 g/dL (3.5-5.0); BILIRUBIN,TOTAL 0.4 mg/dL (0.2-1.0); CREATININE 1.7 mg/dL (0.5-1.5); POTASSIUM 4.1 mmol/L (3.5-5.1); TOTAL PROTEIN, SERUM 6.9 g/dL (6.0-8.3)
[2021-11-01 11:58] LABS: BASOPHILS % (MANUAL) 1 % (0-2); EOSINOPHILS % (MANUAL) 2 % (1-6); LYMPHOCYTES % (MANUAL) 31 % (22-44); MONOCYTES % (MANUAL) 3 % (2-9); SEGMENTED NEUTROPHILS % 63 % (40-70)
[2021-11-01 12:00] VITALS: BP 105/60
[2021-11-01 12:01] LABS: PLATELET MORPHOLOGY COMMENT ADEQUATE
[2021-11-01 12:04] LABS: MAN.DIFF COMMENT-IMPRESSION MANUAL DIFFERENTIAL
[2021-11-01 16:35] VITALS: BP 92/53
[2021-11-01 20:19] VITALS: BP 100/62
[2021-11-02 00:11] VITALS: BP 93/50
[2021-11-02] MEDS: LEVOFLOXACIN 500 MG/D5W 100 ML 100 ML IV SCH (01:34)
[2021-11-02] MEDS: CLINDAMYCIN IVPB 300MG/50ML 50 ML IV SCH ×3 (01:34→17:20)
[2021-11-02 03:47] VITALS: BP 115/67
[2021-11-02 04:35] LABS: BASOPHILS % (AUTO) 0.7 % (0.0-5.0); EOSINOPHILS % (AUTO) 9.1 % (0.0-8.0); HEMATOCRIT 27.9 % (42-54); LYMPHOCYTES % (AUTO) 29.3 % (21.0-51.0); MEAN CORPUSCULAR HEMOGLOBIN 26.8 pg (27.0-33.0); MEAN CORPUSCULAR HGB CONC 31.9 g/dL (32.0-36.0); MONOCYTES % (AUTO) 9.5 % (3.0-13.0); PLATELET COUNT (AUTO) 245 K/uL (130-400); RED BLOOD CELL COUNT(AUTO) 3.32 MIL/uL (4.50-6.20); RED CELL DISTRIBUTION WIDTH 15.2 % (11.0-15.5); WHITE BLOOD COUNT (AUTO) 7.6 K/uL (4.8-10.8)
[2021-11-02 04:49] LABS: ALBUMIN 2.6 g/dL (3.5-5.0); BILIRUBIN,TOTAL 0.3 mg/dL (0.2-1.0); CREATININE 1.7 mg/dL (0.5-1.5); POTASSIUM 3.9 mmol/L (3.5-5.1); TOTAL PROTEIN, SERUM 6.5 g/dL (6.0-8.3)
[2021-11-02] MEDS: GLIMEPIRIDE 2 MG TABLET PO SCH (07:05)
[2021-11-02] MEDS: INSULIN HUMULIN R 100 UNIT/ML 3ML SQ SCH ×4 (07:08→20:39)
[2021-11-02 07:30] VITALS: BP 105/43
[2021-11-02] MEDS: ENOXAPARIN SODIUM 40 MG/0.4 ML SYRINGE SQ SCH (10:02)
[2021-11-02] MEDS: ATORVASTATIN 40 MG TABLET PO SCH (10:03)
[2021-11-02] MEDS: PANTOPRAZOLE 40 MG TAB DR PO SCH (10:03)
[2021-11-02] MEDS: MEMANTINE HCL 5 MG TABLET PO SCH (10:03)
[2021-11-02] MEDS: CYANOCOBALAMIN (VITAMIN B-12) 1,000 MCG TABLET PO SCH (10:03)
[2021-11-02] MEDS: FINASTERIDE 5 MG TABLET PO SCH (10:03)
[2021-11-02] MEDS: ASPIRIN 81 MG EC TAB PO SCH (10:03)
[2021-11-02] MEDS: FERROUS SULFATE 325 MG TABLET.DR PO SCH (10:04)
[2021-11-02] MEDS: CLOPIDOGREL 75MG TAB PO SCH (10:04)
[2021-11-02] MEDS: TAMSULOSIN HCL 0.4 MG CAP.ER.24H PO SCH (10:04)
[2021-11-02] MEDS: OXYBUTYNIN CHLORIDE 5 MG TABLET PO SCH ×2 (10:04→20:38)
[2021-11-02] MEDS: FUROSEMIDE 20 MG TABLET PO SCH ×2 (10:04→20:39)
[2021-11-02] MEDS: METOPROLOL TARTRATE 25 MG TAB PO SCH ×2 (10:04→20:38)
[2021-11-02] MEDS: LISINOPRIL 5 MG TABLET PO SCH (10:10)
[2021-11-02 11:00] VITALS: BP 126/61
[2021-11-02 16:00] VITALS: BP 97/46
[2021-11-02 20:26] VITALS: BP 110/54
[2021-11-02] MEDS ORDERED: DRONABINOL 2.5 MG CAP PO ONE (21:00)
[2021-11-03] VITALS (7 sets, daily range): BP systolic 98–117; BP diastolic 57–72
[2021-11-03] MEDS: CLINDAMYCIN IVPB 300MG/50ML 50 ML IV SCH ×3 (01:06→17:11)
[2021-11-03] MEDS: LEVOFLOXACIN 500 MG/D5W 100 ML 100 ML IV SCH (01:52)
[2021-11-03 05:29] LABS: EOSINOPHILS % (AUTO) 13.6 % (0.0-8.0); HEMATOCRIT 27.9 % (42-54); LYMPHOCYTES % (AUTO) 33.2 % (21.0-51.0); MEAN CORPUSCULAR HEMOGLOBIN 27.1 pg (27.0-33.0); MEAN CORPUSCULAR HGB CONC 31.9 g/dL (32.0-36.0); MEAN CORPUSCULAR VOLUME 85.1 fL (79-99); NEUTROPHILS % (AUTO) 42.8 % (40.0-77.0); PLATELET COUNT (AUTO) 231 K/uL (130-400); RED BLOOD CELL COUNT(AUTO) 3.28 MIL/uL (4.50-6.20); RED CELL DISTRIBUTION WIDTH 15.3 % (11.0-15.5); WHITE BLOOD COUNT (AUTO) 7.2 K/uL (4.8-10.8)
[2021-11-03 05:36] LABS: ALBUMIN 2.6 g/dL (3.5-5.0); BILIRUBIN,TOTAL 0.2 mg/dL (0.2-1.0); CREATININE 1.6 mg/dL (0.5-1.5); POTASSIUM 3.4 mmol/L (3.5-5.1); TOTAL PROTEIN, SERUM 6.4 g/dL (6.0-8.3)
[2021-11-03] MEDS: INSULIN HUMULIN R 100 UNIT/ML 3ML SQ SCH ×4 (06:09→20:46)
[2021-11-03] MEDS: FUROSEMIDE 20 MG TABLET PO SCH ×2 (09:00→20:42)
[2021-11-03] MEDS: LISINOPRIL 5 MG TABLET PO SCH (09:00)
[2021-11-03] MEDS: PANTOPRAZOLE 40 MG TAB DR PO SCH (09:42)
[2021-11-03] MEDS: ATORVASTATIN 40 MG TABLET PO SCH (09:42)
[2021-11-03] MEDS: ASPIRIN 81 MG EC TAB PO SCH (09:42)
[2021-11-03] MEDS: CLOPIDOGREL 75MG TAB PO SCH (09:42)
[2021-11-03] MEDS: FERROUS SULFATE 325 MG TABLET.DR PO SCH (09:43)
[2021-11-03] MEDS: TAMSULOSIN HCL 0.4 MG CAP.ER.24H PO SCH (09:43)
[2021-11-03] MEDS: FINASTERIDE 5 MG TABLET PO SCH (09:43)
[2021-11-03] MEDS: CYANOCOBALAMIN (VITAMIN B-12) 1,000 MCG TABLET PO SCH (09:43)
[2021-11-03] MEDS: GLIMEPIRIDE 2 MG TABLET PO SCH (09:43)
[2021-11-03] MEDS: OXYBUTYNIN CHLORIDE 5 MG TABLET PO SCH ×2 (09:43→20:43)
[2021-11-03] MEDS: MEMANTINE HCL 5 MG TABLET PO SCH (09:43)
[2021-11-03] MEDS: ENOXAPARIN SODIUM 40 MG/0.4 ML SYRINGE SQ SCH (09:44)
[2021-11-03] MEDS: METOPROLOL TARTRATE 25 MG TAB PO SCH (20:42)
[2021-11-04] MEDS: CLINDAMYCIN IVPB 300MG/50ML 50 ML IV SCH ×2 (00:54→09:13)
[2021-11-04] MEDS: LEVOFLOXACIN 500 MG/D5W 100 ML 100 ML IV SCH (01:46)
[2021-11-04 04:00] VITALS: BP 120/78
[2021-11-04] MEDS: INSULIN HUMULIN R 100 UNIT/ML 3ML SQ SCH ×2 (06:11→12:12)
[2021-11-04 08:00] VITALS: BP 116/67
[2021-11-04] MEDS: FINASTERIDE 5 MG TABLET PO SCH (09:07)
[2021-11-04] MEDS: OXYBUTYNIN CHLORIDE 5 MG TABLET PO SCH (09:07)
[2021-11-04] MEDS: ASPIRIN 81 MG EC TAB PO SCH (09:07)
[2021-11-04] MEDS: ATORVASTATIN 40 MG TABLET PO SCH (09:07)
[2021-11-04] MEDS: FERROUS SULFATE 325 MG TABLET.DR PO SCH (09:07)
[2021-11-04] MEDS: PANTOPRAZOLE 40 MG TAB DR PO SCH (09:07)
[2021-11-04] MEDS: CYANOCOBALAMIN (VITAMIN B-12) 1,000 MCG TABLET PO SCH (09:07)
[2021-11-04] MEDS: GLIMEPIRIDE 2 MG TABLET PO SCH (09:08)
[2021-11-04] MEDS: TAMSULOSIN HCL 0.4 MG CAP.ER.24H PO SCH (09:09)
[2021-11-04] MEDS: CLOPIDOGREL 75MG TAB PO SCH (09:09)
[2021-11-04] MEDS: MEMANTINE HCL 5 MG TABLET PO SCH (09:09)
[2021-11-04] MEDS: METOPROLOL TARTRATE 25 MG TAB PO SCH (09:11)
[2021-11-04] MEDS: LISINOPRIL 5 MG TABLET PO SCH (09:11)
[2021-11-04] MEDS: FUROSEMIDE 20 MG TABLET PO SCH (09:12)
[2021-11-04] MEDS: ENOXAPARIN SODIUM 40 MG/0.4 ML SYRINGE SQ SCH (09:12)
[2021-11-04 12:00] VITALS: BP 108/53
== END 2021-11-04 17:00 | DRG 291 ==
LOC: EDH 17:34 → EDHIP 17:35 → 2DH 10-30 10:04 → 3CH 11-01 06:19
PROVIDERS: ADMIT Internal Medicine; ATTEND Internal Medicine
DX: I11.0 Hypertensive heart disease with heart failure (principal); I50.33 Acute on chronic diastolic (congestive) heart failure; J98.11 Atelectasis; I25.10 Atherosclerotic heart disease of native coronary artery without angina pectoris; I25.5 Ischemic cardiomyopathy; Z95.1 Presence of aortocoronary bypass graft; Z20.822 Contact with and (suspected) exposure to COVID-19; E78.5 Hyperlipidemia, unspecified; I25.2 Old myocardial infarction; Z79.899 Other long term (current) drug therapy; E11.40 Type 2 diabetes mellitus with diabetic neuropathy, unspecified; I80.02 Phlebitis and thrombophlebitis of superficial vessels of left lower extremity; D63.8 Anemia in other chronic diseases classified elsewhere; N40.0 Benign prostatic hyperplasia without lower urinary tract symptoms; E78.00 Pure hypercholesterolemia, unspecified; Z79.02 Long term (current) use of antithrombotics/antiplatelets; Z79.82 Long term (current) use of aspirin; J84.10 Pulmonary fibrosis, unspecified
CPT/HCPCS: 36415; 71045; 71275; 80053; 82550; 82948; 83605; 83735; 83874; 83880; 84100; 84484; 85025; 85378; 87070; 87076; 87635; 93005; 93970; 97039; G0378; J1650; J1815; J1956; J3490; Q0167; Q9967

== ENCOUNTER 2022-01-02 14:02 | Observation (INO) | payer OTHER ==
[~2022-01-02] VITALS: Ht 175.3 cm; Wt 97.3 kg
[~2022-01-02 14:02] MED LIST changes: -APIX5TAB PO; -DONE-51 PO; -GLIP10TA9 PO; -SIMV-43 PO; -SOLI5TAB6 PO
[2022-01-02 15:32] LABS: BASOPHILS % (AUTO) 0.7 % (0.0-5.0); EOSINOPHILS % (AUTO) 4.8 % (0.0-8.0); HEMATOCRIT 30.9 % (42-54); LYMPHOCYTES % (AUTO) 29.7 % (21.0-51.0); MEAN CORPUSCULAR HEMOGLOBIN 27.3 pg (27.0-33.0); MEAN CORPUSCULAR VOLUME 85.4 fL (79-99); MONOCYTES % (AUTO) 8.1 % (3.0-13.0); NEUTROPHILS % (AUTO) 56.3 % (40.0-77.0); PLATELET COUNT (AUTO) 188 K/uL (130-400); RED BLOOD CELL COUNT(AUTO) 3.62 MIL/uL (4.50-6.20); RED CELL DISTRIBUTION WIDTH 16.1 % (11.0-15.5); WHITE BLOOD COUNT (AUTO) 7.1 K/uL (4.8-10.8)
[2022-01-02 15:43] LABS: POTASSIUM 3.9 mmol/L (3.5-5.1)
[2022-01-02 15:44] LABS: PROTHROMBIN TIME 10.9 SEC (9.6-11.6)
[2022-01-02 15:46] LABS: PARTIAL THROMBOPLASTIN TIME 25.9 SEC (26.3-35.5)
[2022-01-02 15:47] LABS: ALBUMIN 3.2 g/dL (3.5-5.0); BILIRUBIN,TOTAL 0.3 mg/dL (0.2-1.0)
[2022-01-02 16:26] LABS: APPEARANCE,URINE CLEAR (CLEAR); BILIRUBIN,URINE NEGATIVE (NEGATIVE); COLOR,URINE YELLOW (YELLOW); GLUCOSE, URINE (UA) NEGATIVE (NEGATIVE); KETONES,URINE NEGATIVE (NEGATIVE); LEUKOCYTE ESTERASE ,URINE NEGATIVE (NEGATIVE); NITRATE,URINE NEGATIVE (NEGATIVE); OCCULT BLOOD,URINE NEGATIVE (NEGATIVE); PH,URINE 5.5 (5.0-8.0); PROTEIN,URINE NEGATIVE (NEGATIVE); UROBILINOGEN,URINE 0.2 mg/dL (0.2-1.0)
[2022-01-02] MEDS ORDERED: FURO20TA4 PO (16:41)
[2022-01-02] MEDS ORDERED: GLIP10TA9 PO (16:41)
[2022-01-02] MEDS ORDERED: SIMV-43 PO (16:41)
[2022-01-02] MEDS ORDERED: DONE-51 PO (16:41)
[2022-01-02] MEDS ORDERED: SOLI5TAB6 PO (16:41)
[2022-01-02] MEDS ORDERED: CLONIDINE HCL 0.1 MG TABLET PO PRN (18:00)
[2022-01-02] MEDS ORDERED: ACETAMINOPHEN 325 MG TAB PO PRN (18:00)
[2022-01-02] MEDS ORDERED: ONDANSETRON 4MG INJ IVP PRN (18:00)
[2022-01-02] MEDS ORDERED: ACETAMINOPHEN 650 MG SUPPOSITORY RC PRN (18:00)
[2022-01-02] MEDS ORDERED: POTASSIUM CHLORIDE 10% ELIXIR 20 MEQ/15 ML UDCUP PO PRN (18:30)
[2022-01-02] MEDS ORDERED: LIDOCAINE HCL-MPF 1% 2ML VIAL IV PRN ×2 (18:30)
[2022-01-02] MEDS ORDERED: GLUCAGON 1MG KIT 1 MG ML IM PRN (18:30)
[2022-01-02] MEDS ORDERED: DEXTROSE 50%-WATER 50 ML DISP.SYRIN IV PRN (18:30)
[2022-01-02] MEDS ORDERED: MAGNESIUM 2GM PREMIX 50ML 50 ML IV PRN (18:30)
[2022-01-02] MEDS ORDERED: KCL 20 MEQ ERTAB PO PRN (18:30)
[2022-01-02] MEDS ORDERED: POTASSIUM CHLORIDE 20MEQ/100ML 100 ML IV PRN ×2 (18:30)
[2022-01-02] MEDS: METOPROLOL TARTRATE 25 MG TAB PO SCH (20:27)
[2022-01-02] MEDS: APIXABAN 5 MG TABLET PO SCH (20:27)
[2022-01-02] MEDS: INSULIN HUMULIN R 100 UNIT/ML 3ML SQ SCH (20:30)
[2022-01-02 23:03] VITALS: BP 136/62
[2022-01-03 04:53] VITALS: BP 140/88
[2022-01-03 05:25] LABS: BASOPHILS % (AUTO) 0.6 % (0.0-5.0); HEMATOCRIT 30.1 % (42-54); LYMPHOCYTES % (AUTO) 36.3 % (21.0-51.0); MEAN CORPUSCULAR HEMOGLOBIN 27.3 pg (27.0-33.0); MEAN CORPUSCULAR HGB CONC 31.9 g/dL (32.0-36.0); MEAN CORPUSCULAR VOLUME 85.5 fL (79-99); MONOCYTES % (AUTO) 7.7 % (3.0-13.0); NEUTROPHILS % (AUTO) 50.1 % (40.0-77.0); PLATELET COUNT (AUTO) 177 K/uL (130-400); RED BLOOD CELL COUNT(AUTO) 3.52 MIL/uL (4.50-6.20); RED CELL DISTRIBUTION WIDTH 15.9 % (11.0-15.5); WHITE BLOOD COUNT (AUTO) 7.1 K/uL (4.8-10.8)
[2022-01-03] MEDS: INSULIN HUMULIN R 100 UNIT/ML 3ML SQ SCH ×3 (05:41→16:30)
[2022-01-03 05:44] LABS: CREATININE 0.9 mg/dL (0.5-1.5); MAGNESIUM 1.6 mg/dL (1.80-2.40); PHOSPHORUS 3.8 mg/dL (2.5-4.9); POTASSIUM 3.4 mmol/L (3.5-5.1)
[2022-01-03 08:00] VITALS: BP 134/62
[2022-01-03] MEDS ORDERED: POLYETHYLENE GLYCOL 3350 17 GM POWD.PACK PO SCH (09:00)
[2022-01-03] MEDS ORDERED: METOPROLOL TARTRATE 25 MG TAB PO SCH (09:00)
[2022-01-03] MEDS ORDERED: SOLIFENACIN SUCCINATE 5 MG PO SCH (09:00)
[2022-01-03] MEDS ORDERED: PANTOPRAZOLE 40 MG TAB DR PO SCH ×2 (09:00)
[2022-01-03] MEDS ORDERED: FUROSEMIDE 20 MG TABLET PO SCH (09:00)
[2022-01-03] MEDS ORDERED: MEMANTINE HCL 5 MG TABLET PO SCH (09:00)
[2022-01-03] MEDS ORDERED: ASPIRIN 81 MG EC TAB PO SCH (09:00)
[2022-01-03] MEDS ORDERED: LOSARTAN 50 MG TABLET PO SCH (09:00)
[2022-01-03] MEDS ORDERED: ASPIRIN 81MG CHEW TAB PO SCH (09:00)
[2022-01-03] MEDS ORDERED: POTASSIUM CHLORIDE 10MEQ SR TAB PO SCH (09:00)
[2022-01-03] MEDS ORDERED: CYANOCOBALAMIN (VITAMIN B-12) 1,000 MCG TABLET PO SCH (09:00)
[2022-01-03] MEDS: METOPROLOL TARTRATE 25 MG TAB PO SCH (09:43)
[2022-01-03] MEDS: FERROUS SULFATE 325 MG TABLET.DR PO SCH ×2 (09:44→14:21)
[2022-01-03] MEDS: APIXABAN 5 MG TABLET PO SCH (09:44)
[2022-01-03 12:00] VITALS: BP 100/52
[2022-01-03 16:00] VITALS: BP 121/54
[2022-01-03] MEDS ORDERED: APIX5TAB PO (17:05)
[2022-01-03] MEDS ORDERED: SIMVASTATIN 20 MG TABLET PO SCH (21:00)
[2022-01-03] MEDS ORDERED: DONEPEZIL HCL 5 MG TAB PO SCH (21:00)
[2022-01-03] MEDS ORDERED: ATORVASTATIN 40 MG TABLET PO SCH (21:00)
[2022-01-03] MEDS ORDERED: TAMSULOSIN HCL 0.4 MG CAP.ER.24H PO SCH (21:00)
== END 2022-01-03 17:30 | disposition home or self-care (01) ==
LOC: EDH 14:02 → EDHIP 17:57 → 3DH 22:59
PROVIDERS: ADMIT Internal Medicine Critical Care Medicine; ATTEND Internal Medicine Critical Care Medicine
DX: I80.3 Phlebitis and thrombophlebitis of lower extremities, unspecified (principal); Z20.822 Contact with and (suspected) exposure to COVID-19; R60.0 Localized edema; E11.65 Type 2 diabetes mellitus with hyperglycemia; I25.10 Atherosclerotic heart disease of native coronary artery without angina pectoris; D64.9 Anemia, unspecified; E66.9 Obesity, unspecified; E78.00 Pure hypercholesterolemia, unspecified; I10 Essential (primary) hypertension; I25.2 Old myocardial infarction; E78.5 Hyperlipidemia, unspecified; M71.20 Synovial cyst of popliteal space [Baker], unspecified knee; Z79.02 Long term (current) use of antithrombotics/antiplatelets; Z79.82 Long term (current) use of aspirin; Z79.84 Long term (current) use of oral hypoglycemic drugs; Z79.899 Other long term (current) drug therapy; Z86.72 Personal history of thrombophlebitis; Z86.73 Personal history of transient ischemic attack (TIA), and cerebral infarction without residual deficits; Z95.1 Presence of aortocoronary bypass graft
CPT/HCPCS: 36415 ×2; 80048; 80053; 81003; 82948 ×5; 83605; 83735; 84100; 85025 ×2; 85610; 85730; 87635; 96374; 97116; 97161; 99284; G0378 ×22; J3475

== ENCOUNTER → 2022-01-02 | Outpatient (CLI) | payer OTHER ==
[~2022-01-02] MED LIST changes: +APIX5TAB PO; +ATOR40TA71 PO; +DONE-51 PO; -FINA5TAB41 PO; +GLIP10TA9 PO; +LACT10PA5 PO; +OXYB5TAB15 PO; +SIMV-43 PO; -SIMV40TA59 PO; +SOLI5TAB6 PO; -VITAMIN D3 PO
== END | disposition home or self-care (01) ==
LOC: RAH 12:28
PROVIDERS: ATTEND Nurse Practitioner Family
DX: I80.252 Phlebitis and thrombophlebitis of left calf muscular vein (principal); M71.22 Synovial cyst of popliteal space [Baker], left knee; M79.89 Other specified soft tissue disorders; I97.648 Postprocedural seroma of a circulatory system organ or structure following other circulatory system procedure; R60.0 Localized edema
CPT/HCPCS: 93971

== ENCOUNTER → 2022-01-14 | Outpatient (CLI) | payer OTHER ==
[~2022-01-14] MED LIST changes: +APIX5TAB PO; +DONE-51 PO; -GLIM4TAB36 PO; +GLIP10TA9 PO; -LACT10PA5 PO; -OXYB5TAB15 PO; +SIMV-43 PO; +SOLI5TAB6 PO
== END | disposition home or self-care (01) ==
LOC: RAH 20:00
PROVIDERS: ATTEND Family Medicine
DX: I80.02 Phlebitis and thrombophlebitis of superficial vessels of left lower extremity (principal); I80.252 Phlebitis and thrombophlebitis of left calf muscular vein; M71.22 Synovial cyst of popliteal space [Baker], left knee; M79.89 Other specified soft tissue disorders
CPT/HCPCS: 93971

== ENCOUNTER → 2022-01-16 | Outpatient (CLI) | payer OTHER ==
[2022-01-16 12:54] LABS: POTASSIUM 3.9 mmol/L (3.5-5.1)
== END | disposition home or self-care (01) ==
LOC: LAB 11:56
PROVIDERS: ATTEND Physician Assistant
DX: I10 Essential (primary) hypertension (principal); E78.5 Hyperlipidemia, unspecified
CPT/HCPCS: 36415; 80048

== ENCOUNTER → 2022-07-09 | Outpatient (CLI) | payer OTHER ==
[~2022-07-09] MED LIST changes: -APIX5TAB PO; +ATOR10 PO; -ATOR40TA71 PO; +CARB1DRO39 OP; -POTA-10 PO; +POTA-200 PO; -SOLI5TAB6 PO
== END | disposition home or self-care (01) ==
LOC: RAH 07:43
PROVIDERS: ATTEND Neurological Surgery
DX: R26.89 Other abnormalities of gait and mobility (principal); G93.89 Other specified disorders of brain
CPT/HCPCS: 70450